=== PATIENT | male | born 1965 | race African-American/Black ===

== ENCOUNTER 2021-11-30 01:06 | Emergency (ER) | payer OTHER ==
[~2021-11-30] VITALS: Ht 177.8 cm; Wt 82.0 kg
[2021-11-30] MEDS ORDERED: LIDOCAINE 5% PATCH TOP SCH (02:30)
[2021-11-30] MEDS ORDERED: IBUPROFEN 600MG TABLET PO ONE (02:30)
[2021-11-30 04:02] VITALS: BP 130/70
== END 2021-11-30 04:02 | disposition home or self-care (01) ==
LOC: ER 01:06
DX: S22.42XA Multiple fractures of ribs, left side, initial encounter for closed fracture (principal); I10 Essential (primary) hypertension; V18.0XXA Pedal cycle driver injured in noncollision transport accident in nontraffic accident, initial encounter; Y93.89 Activity, other specified; Y92.488 Other paved roadways as the place of occurrence of the external cause
CPT/HCPCS: 71045; 99283